=== PATIENT | female | born 1975 | race Caucasian/White ===

== ENCOUNTER 2017-01-10 07:27 | Day surgery (SDC) | payer MEDICAID, OTHER ==
[~2017-01-10] VITALS: Ht 162.6 cm; Wt 93.2 kg
[2017-01-10] VITALS (16 sets, daily range): BP systolic 122–146; BP diastolic 65–89; PULSE 70–80; RESP 12–24; Ht 162.6 cm; Wt 93.2 kg
[~2017-01-10 07:27] MED LIST: BACTDS PO; IBUP-1542 PO; MEDR5TAB PO; SEVOFLURANE 15 MIN ONE
[2017-01-10] MEDS ORDERED: LACTATED RINGER'S 1,000 ML IV SCH (07:30)
[2017-01-10] MEDS ORDERED: MULTI PO (08:00)
[2017-01-10] MEDS ORDERED: NEOSTIGMINE 3 MG/3 ML SYRINGE ONE (08:15)
[2017-01-10] MEDS ORDERED: PROPOFOL 20 ML ONE (08:15)
[2017-01-10] MEDS ORDERED: ROCURONIUM 50 MG INJ ONE (08:15)
[2017-01-10] MEDS ORDERED: GLYCOPYRROLATE 0.4 MG INJ ONE (08:15)
[2017-01-10] MEDS ORDERED: FENTAnyl 50 MCG/ML VIAL ONE (08:15)
[2017-01-10] MEDS ORDERED: LIDOCAINE 2% (SDV) 5 ML INJ ONE (08:15)
[2017-01-10] MEDS ORDERED: MIDAZOLAM 1 MG/ML 2 ML INJ ONE (08:15)
[2017-01-10] MEDS ORDERED: SUCCINYLCHOLINE CHLORIDE 100 MG/5 ML SYG IV ONE (08:19)
[2017-01-10] MEDS ORDERED: DEXAMETHASONE 4 MG/ML 1 ML INJ ONE (08:20)
[2017-01-10] MEDS ORDERED: ONDANSETRON 4 MG INJ ONE (08:20)
[2017-01-10 08:31] LABS: ADD SCAN DIFF NO
[2017-01-10 08:35] LABS: BASOPHIL # 0.1 10^3/ul (0.0-0.1); EOSINOPHILS # 0.9 10^3/ul (0.0-0.5); EOSINOPHILS % 8.7 % (0.0-7.0); HEMATOCRIT 43.7 % (37.0-47.0); HEMOGLOBIN 14.2 g/dl (12.0-16.0); LYMPHOCYTES # 2.5 10^3/ul (0.8-2.9); LYMPHOCYTES % 23.6 % (15.0-51.0); MEAN CORPUSCULAR HEMOGLOBIN 25.4 pg (29.0-33.0); MEAN CORPUSCULAR HGB CONC 32.5 g/dl (32.0-37.0); MEAN CORPUSCULAR VOLUME 78.2 fl (82.0-101.0); MONOCYTES % 9.2 % (0.0-11.0); NEUTROPHIL # 6.1 10^3/ul (1.6-7.5); NEUTROPHILS % 57.1 % (39.0-77.0); PLATELET COUNT 334 10^3/UL (140-415); RED BLOOD COUNT 5.59 10^6/ul (4.20-5.40); RED CELL DISTRIBUTION WIDTH 19.9 % (11.5-14.5); WHITE BLOOD COUNT 10.7 10^3/ul (4.8-10.8)
[2017-01-10] MEDS ORDERED: BUPIVACAINE 0.5%/EPI (SDV) 30 ML INJ ONE (09:19)
[2017-01-10] MEDS ORDERED: MEPERIDINE 25 MG INJ IV PRN (09:30)
[2017-01-10] MEDS ORDERED: DIPHENHYDRAMINE 50 MG INJ IV PRN (09:30)
[2017-01-10] MEDS ORDERED: HYDROmorphONE (0.2 MG/ML) 10ML SYG IV PRN ×2 (09:30)
[2017-01-10] MEDS ORDERED: MIDAZOLAM 1 MG/ML 2 ML INJ IV PRN (09:30)
[2017-01-10] MEDS ORDERED: LABETALOL HCL 20MG INJ IV PRN (09:30)
[2017-01-10] MEDS ORDERED: FENTAnyl 50 MCG/ML VIAL IV PRN ×2 (09:30)
[2017-01-10] MEDS ORDERED: EPHEDrine SULFATE 50 MG/5 ML SYG IV PRN (09:30)
[2017-01-10] MEDS ORDERED: OXYCODONE/ACETAMINOPHEN (5/325) TAB PO PRN ×3 (09:30→12:30)
[2017-01-10] MEDS ORDERED: ATROPINE 1 MG/10 ML SYRINGE IV PRN (09:30)
[2017-01-10] MEDS ORDERED: morphine (1 MG/ML) 10ML SYRINGE IV PRN ×3 (09:30)
[2017-01-10] MEDS ORDERED: ONDANSETRON 4 MG INJ IV PRN ×2 (09:30→12:30)
[2017-01-10] MEDS ORDERED: hydrALAzine 20 MG INJ IV PRN (09:30)
[2017-01-10] MEDS ORDERED: CEFAZOLIN 1 GM INJ ONE (10:31)
[2017-01-10] MEDS ORDERED: KETOROLAC 30 MG INJ ONE ×2 (11:13→12:05)
[2017-01-10] MEDS ORDERED: ALBUTEROL 0.083% (NEB) 2.5 MG/3 ML AMP ONE (11:35)
[2017-01-10] MEDS ORDERED: BUPIVACAINE 0.5%/EPI (SDV) 30 ML INJ INJ ONE (11:45)
[2017-01-10] MEDS: HYDROmorphONE (0.2 MG/ML) 10ML SYG IV PRN ×2 (12:18→12:37)
[2017-01-10] MEDS ORDERED: morphine 2 MG INJ IV PRN (12:30)
[2017-01-10] MEDS ORDERED: KETOROLAC 30 MG INJ IV PRN (12:30)
[2017-01-10] MEDS ORDERED: LIDOCAINE 100 MG SYRINGE ONE (12:37)
--- NOTE | 2017-01-10 12:49 | PREOPHP ---
DATE OF ADMISSION: 01/10/2017 HISTORY OF PRESENT ILLNESS: A 41-year-old female 1, para 1, last menstrual period , requests surgical sterilization. PAST MEDICAL HISTORY: Unremarkable. PAST SURGICAL HISTORY: Tonsillectomy. ALLERGIES: NO KNOWN ALLERGIES. FAMILY HISTORY: Diabetes and hypertension. PHYSICAL EXAMINATION: VITAL SIGNS: The patient is afebrile. Vital signs stable. HEAD, NECK AND CHEST: Within normal limits. ABDOMEN: Soft, nontender, nondistended. PELVIC: Normal. EXTREMITIES: Within normal limits. NEUROLOGIC: Within normal limits. IMPRESSION: Voluntary sterilization. PLAN: Mini-laparotomy, bilateral tubal ligation. Risks, benefits and alternatives of the procedure were explained to the patient. The patient has been counseled about all of her contraceptive optio ns including all methods of sterilization. It was explained to the patient that with bilateral tuba l ligation there is a chance of failure resulting in ectopic and/or intrauterine . After counseling, the patient said she understood and gave informed consent for the procedure. Dictated By: CARMEN EPSTEIN/AFUA Conf#: [id number] DID#: [id number]
--- NOTE | 2017-01-10 13:25 | OPR ---
DATE OF OPERATION: 01/10/2017 PREOPERATIVE DIAGNOSIS: Voluntary sterilization. POSTOPERATIVE DIAGNOSIS: Voluntary sterilization. OPERATION PERFORMED: Mini-laparotomy, bilateral tubal ligation. SURGEON: Carmen Vazquez MD MULTIPLE KNIFE EDGE TRIMMER OPERATOR: ocular care technologist ANESTHESIA: General. ANESTHESIOLOGIST: Arturo Cheek MD PROCEDURE: The patient was taken to the operating room and placed on the operating table in the sup ine position. After adequate general anesthesia was given, the area was prepared and draped in the usual sterile fashion. Using a scalpel, Pfannenstiel incision was made about 2 fingerbreadths above the symphysis pubis. I ncision was carried down to the fascia. The fascia was incised and extended bilaterally with Bovie. Two Kenyon's were used to separate the fascia from the muscle. The muscle was dissected down to t he peritoneum. The peritoneum was secured with 2 Kellys and incised with Metzenbaum scissors. Upon entering the peritoneal cavity, the right fallopian tube was grasped with a Sary clamp and follo wed to its fimbrial end to confirm its identity. Using 0 plain suture ligature, a 5 cm segment of t he right fallopian tube was doubly ligated. Using Metzenbaum scissors, a portion of the right fallo pian tube over the ligated area was excised and sent to pathology. Same procedure was repeated on t he left fallopian tube. After assuring hemostasis, the peritoneum was closed with 0 chromic. The f ascia was closed with 0 Vicryl continuous. Subcutaneous tissue was reapproximated with 2-0 chromic. Skin was closed with ambika. ESTIMATED BLOOD LOSS: Minimal. COMPLICATIONS: None. COUNTS: All counts were correct. Dictated By: CARMEN EPSTEIN/NTS Conf#: [id number] DID#: [id number]
--- NOTE | 2017-01-10 18:30 | RADRPT ---
Vent Rate: 73 bpm RR Interval: 0 msec NH Interval: 160 msec QRS Duration: 84 msec QT Interval: 388 msec QTC Interval: 427 msec P-R-T [place]: 52 - 55 - 45 degrees Normal sinus rhythm Normal ECG Electronically Signed By: Cruz Varma [id number]
== END 2017-01-10 14:50 | disposition home or self-care (01) ==
LOC: SDS 07:27
PROVIDERS: ATTEND Obstetrics & Gynecology
DX: Z30.2 Encounter for sterilization (principal); E66.9 Obesity, unspecified; Z68.35 Body mass index [BMI] 35.0-35.9, adult
CPT/HCPCS: 58600; 84703; 85025; 86850; 86900; 86901; 88302; 93005; J0330; J0690; J1100; J1170; J1885; J2250; J2405; J3010; Z7512; Z7610; J2001; J2710